=== PATIENT | female | born 1955 | race Caucasian/White ===

== ENCOUNTER 2016-10-21 13:18 | Inpatient (IN) | payer OTHER ==
[~2016-10-21] VITALS: Ht 165.1 cm; Wt 54.2 kg
[2016-11-11] MEDS ORDERED: FLUO1TAB3 PO (12:28)
[2016-11-11] MEDS ORDERED: ACYC800T PO (12:28)
[2016-11-11] MEDS ORDERED: ESTE1TAB4 PO (12:28)
[2016-11-11] MEDS ORDERED: MELO-1 PO (12:28)
[2016-11-11] MEDS ORDERED: GLUC1CAP14 PO (12:34)
[2016-11-11] MEDS ORDERED: NAPR500T PO (12:34)
[2016-11-11] MEDS ORDERED: CALC1TAB87 PO (12:34)
[2016-11-11] MEDS ORDERED: VITA10002 PO (12:34)
[2016-11-12] MEDS ORDERED: SODIUM CHLORID 0.9% 500 ML IV PRN (06:00)
[2016-11-12] MEDS ORDERED: VANCOMYCIN 1000 MG/NS 250 ML (for <70 kg) IV SCH ×2 (06:00)
[2016-11-12] MEDS ORDERED: LACTATED RINGER'S 1000 ML IV PRN (06:00)
[2016-11-12] MEDS ORDERED: CHLORHEXIDINE GLUCONATE 4% SOLN 120 ML BTL TOPICAL SCH (06:00)
[2016-11-12] MEDS ORDERED: ceFAZolin 2 GM PREMIX 50 ML IV SCH (06:00)
[2016-11-12] MEDS ORDERED: CHLORHEXIDINE GLUCONATE 2 % 1 PACK (2 CLOTHS) TOPICAL PRN (06:00)
[2016-11-12] MEDS ORDERED: INSULIN HUMAN REGULAR 1,000 UNITS/10 ML VIAL SQ PRN (06:00)
[2016-11-12] MEDS ORDERED: POVIDONE IODINE 5% (ANTISEPSIS KIT) 4 APPLICATIONS EACH NARE PRN (06:00)
[2016-11-12] MEDS ORDERED: METOPROLOL TARTRATE 25 MG TAB PO PRN (06:00)
[2016-11-12] MEDS ORDERED: GENTAMICIN SULFATE 80 MG/2 ML VIAL ONE ×2 (06:31→06:32)
[2016-11-12 06:40] VITALS: BP 134/79; PULSE 60; RESP 20; TEMP 98; O2SAT 99
[2016-11-12] MEDS ORDERED: fentaNYL CITRATE 250 MCG/5 ML AMP ONE (07:02)
[2016-11-12] MEDS ORDERED: MIDAZOLAM HCL 2 MG/2 ML VIAL ONE (07:02)
[2016-11-12] MEDS ORDERED: DEXAMETHASONE SOD PHOS 4 MG/ML VIAL ONE (07:03)
[2016-11-12] MEDS ORDERED: FAMOTIDINE 20 MG/2 ML VIAL ONE (07:03)
[2016-11-12] MEDS ORDERED: TRANEXAMIC ACID INJ 750 MG in SODIUM CHLORIDE 0.9% INJ 100 ML IV SCH (07:30)
[2016-11-12] MEDS ORDERED: EXPAREL PERI-ARTICULAR INJECTION (TOTAL VOL. 60 ML) P-ARTICULR SCH ×2 (07:30)
[2016-11-12] MEDS ORDERED: ACETAMINOPHEN 1000 MG/100 ML VIAL IV ONE (08:32)
[2016-11-12] MEDS ORDERED: XARE10TA PO (09:14)
[2016-11-12] MEDS ORDERED: HYDR-3366 PO (09:14)
[2016-11-12] MEDS ORDERED: WALKER/ADULT/FO1 MIS (09:14)
--- NOTE | 2016-11-12 09:15 | HHI.FF ---
Face to Face Verification Diagnosis: (1) S/P total hip arthroplasty Physical Therapy Gait training Hip: Total hip, Protocol: Right, Progress to weight bearing Right LE Weight Bearing: WB as tolerated Left LE Weight Bearing: WB as tolerated Nursing Dressing Changes: Daily dressing change, Coverderm/Primapore (begin adding xeroform POD 10) I have seen patient Marie Moe on 11/12/16. My clinical findings support the need for the requested home health care services because: Ltd mobility - disease progression I certify that my clinical findings support that this patient is homebound because: Post-op weakness Richard Mckenna November 12, 2016 09:15
[2016-11-12] MEDS ORDERED: NALOXONE HCL 0.4 MG/ML AMP IV PRN (09:30)
[2016-11-12] MEDS ORDERED: TRANEXAMIC ACID INJ 1,000 MG in SODIUM CHLORIDE 0.9% INJ 100 ML IV ONE (09:30)
[2016-11-12] MEDS ORDERED: MORPHINE SULFATE 4 MG/ML INJ IV PUSH PRN (09:30)
[2016-11-12] MEDS ORDERED: Post-op Orders (for Pharmacy) MISC XX ONE (09:30)
[2016-11-12] MEDS ORDERED: ONDANSETRON HCL 4 MG/2 ML VIAL IVP PRN (09:30)
[2016-11-12] MEDS ORDERED: SODIUM CHLORIDE 0.9% FLUSH 5 ML FLUSH IVF PRN (09:30)
--- NOTE | 2016-11-12 09:33 | PD.OP ---
cc: Evgeny Solorzano MD Operative Report Date of Surgery: November 12, 2016 Preoperative Diagnosis: Severe left hip osteoarthritis Postoperative Diagnosis: Procedure: Left total hip arthroplasty by anterior approach Anesthesia: Gen. Surgeon: Evgeny Solorzano [employer]argo Services Coordinator(s): MACO Quick PA-C The surgical procedure was assisted by my physician accounting administrative assistant. My P.A. presence was necessary throughout this case for the manipulation and positioning of the surgical extremity. My P.A. was assisting me throughout the duration of this procedure. The skill set of a physician accounting administrative assistant was medically necessary to complete this procedure. During the surgical case the quality control tech raw materials was working at the back table and the physician accounting administrative assistant was directly assisting me. Operation and Findings: PLAN OF ACTIVITY Weight bear as tolerated. DRAINS: 7-mm TIA drain. IMPLANTS USED DePuy Corail size [8] collared stem with a size [48] Laie Gription cup and a [+1.5] ceramic Biolox ceramic head. DETAILS OF PROCEDURE: This patient has a long history of hip pain. Patient was found to have severe osteoarthritis. The patient had radiographic evidence of joint space narrowing with dgmy-py-evkt arthritis and osteophytes around the acetabulum as well as the femoral head. There was also some cystic changes. The patient failed conservative treatment with pain medications, anti-inflammatories, physical therapy, assistive devices including a cane, as well as therapeutic injection of the hip. Patient's hip arthritis was limiting his ability to ambulate and perform activities of daily living. The patient wished to proceed with surgery and informed consent was obtained. Operative site was marked. I discussed both posterior approach and anterior approach with the patient and decision was made for anterior approach. Patient was brought to OR and placed on OR table. IV sedation and general anesthesia was administered by anesthesiologist. Patient positioned on a Tiffanie table and was given IV antibiotics. Time-out procedure was performed. The hip and thigh were prepped with alcohol followed by Hibiclens. The thigh was draped in the usual sterile fashion. Clean Air Suite was used for this procedure. The procedure began with a 5-inch incision over the anterolateral thigh. Subcutaneous tissue was dissected with Bovie. The fascia over the tensa fasciae latae was incised. Care was taken to avoid injury to the lateral femoral cutaneous nerve. The tensor muscle was retracted laterally. Sartorius was retracted medially. Retractors were now placed. The reflected head of the rectus is now elevated. A capsulotomy was performed over the anterior head capsule. Sutures were placed to help retract the capsule. At this point the femoral head and neck were identified. With soft tissue protected, oscillating saw was used to make a cut through the femoral neck, the femoral head was now removed. At this point attention was turned to preparation of the acetabulum. The labrum was excised. The acetabulum was sequentially reamed up to size [48]. A Laie cup was now placed. Fluoroscopy was used to aid in identification of appropriate version. Cup was fully impacted and found to have excellent fit. Hole eliminator was now placed. The liner was now impacted into the cup. At this point the hip was externally rotated. A hook was placed around the proximal femur. The capsule was released off the lateral and medial femur. The hip was now extended and adducted. Retractors were placed around the proximal femur to allow for exposure. A box osteotome was used to remove the lateral cortex of the femoral neck. A broach was used to help lateralize the prosthesis. Canal finder was used to create a path down the canal. Next, the canal was sequentially broached up to size [8]. This was found to be an excellent fit. Calcar planer was placed. A standard head was placed, and the hip was reduced. The hip was found to have excellent stability with good range of motion. The leg lengths were measured under fluoroscopy and found to be equal compared to preoperatively. Trial broach was removed. The Corail stem was opened. Stem was fully impacted into the proximal femur in appropriate version. The femoral head was placed. The hip was again reduced. Fluoroscopy confirmed excellent alignment of prosthesis. The wound was thoroughly irrigated and capsule was closed with #1 Vicryl. The fascia over the tensor fasciae muscle was closed with #1 Vicryl, subcutaneous tissue was closed with 3-0 Vicryl and the skin was closed with juan carlos and Dermabond skin closure. The capsule layers were injected with a mixture of saline and bupivicaine. Dressings were applied. The patient was transferred to Recovery Room in stable condition. Evgeny Solorzano MD November 12, 2016 09:33
[2016-11-12] MEDS ORDERED: DO NOT ADM ANY ANTICOAGULANT DRUGS PRN (09:46)
[2016-11-12] MEDS ORDERED: *morphine SULFATE 8 MG/ML PERIprocedure ONLY ONE (09:53)
[2016-11-12] MEDS ORDERED: *ONDANSETRON 4 MG VIAL PERIprocedural Use ONLY ONE (09:55)
[2016-11-12] MEDS: LACTATED RINGER'S 1000 ML INJ 1,000 ML IV SCH ×2 (10:00→20:48)
[2016-11-12] MEDS: KETOROLAC TROMETHAMINE 30 MG/ML (IVP) VIAL IV PUSH SCH ×2 (10:00→20:47)
--- NOTE | 2016-11-12 11:42 | RADRPT ---
EXAM DATE/TIME: 11/12/2016 10:47 [facility] COMPARISON: No previous studies available for comparison. INDICATIONS : Left total hip replacement. MEDICAL HISTORY : None. SURGICAL HISTORY : Hysterectomy. ENCOUNTER: Initial ACUITY: 1 day PAIN SCORE: 7/10 LOCATION: Left hip joint. FINDINGS: Postsurgical changes following left hip replacement are noted. Femoral and acetabular components are well seated in satisfactory aligned. Surgical drain is noted adjacent to prosthesis. Bony pelvis is intact. Advanced arthropathy is present of the right hip. CONCLUSION: Satisfactory postoperative appearance of left hip status post total hip replacement. Severe right hip arthropathy. Jaden Lo MD on November 12, 2016 at 11:38 Board Certified Radiologist. This report was verified electronically.
[2016-11-12] MEDS ORDERED: PROPOFOL 200 MG/20 ML AMP IV ONE (12:00)
[2016-11-12] MEDS: ceFAZolin 2 GM PREMIX 50 ML IV SCH ×3 (12:00→23:34)
[2016-11-12] MEDS ORDERED: ONDANSETRON HCL 4 MG/2 ML VIAL IV PUSH ONE (12:00)
[2016-11-12] MEDS ORDERED: ePHEDrine/NS 25 MG/5 ML SYR IV ONE (12:00)
[2016-11-12] MEDS ORDERED: LACTATED RINGER'S 1000 ML INJ 1,000 ML IV ONE (12:00)
[2016-11-12] MEDS ORDERED: NEOSTIGMINE 3 MG/3 ML SYR IV ONE (12:00)
[2016-11-12] MEDS: ACETAMINOPHEN/HYDROcodone 325 MG/10 MG TAB PO PRN ×2 (12:46→15:30)
[2016-11-12 13:30] VITALS: BP_SYST 121; BP_SYST 92; BP_DIAS 48; BP_DIAS 78; PULSE 64; PULSE 67; RESP 16; RESP 18; TEMP 97.1; TEMP 97.8; O2SAT 98
--- NOTE | 2016-11-12 13:58 | RADRPT ---
EXAM DATE/TIME: 11/12/2016 07:40 [facility] COMPARISON: No previous studies available for comparison. INDICATIONS : Left total hip replacement. MEDICAL HISTORY : None. SURGICAL HISTORY : None. ENCOUNTER: Initial ACUITY: 1 day PAIN SCORE: Non-responsive. LOCATION: Left hip. CONCLUSION: Fluoroscopic images left hip demonstrates left hip arthroplasty. Pop Harp MD on November 12, 2016 at 13:55 Board Certified Radiologist. This report was verified electronically.
[2016-11-12 16:00] VITALS: BP 98/68; PULSE 71; RESP 18; TEMP 96; O2SAT 95
[2016-11-12] MEDS: ACETAMINOPHEN/HYDROcodone 325 MG/7.5 MG TAB PO PRN ×2 (18:26→22:00)
[2016-11-12 19:00] VITALS: BP 108/68; PULSE 62; RESP 16; TEMP 98.2; O2SAT 92
[2016-11-12] MEDS: VANCOMYCIN INJ 1,000 MG in SODIUM CHLOR 0.9% 250 ML INJ 250 ML IV SCH (20:47)
[2016-11-12] MEDS: SODIUM CHLORIDE 0.9% FLUSH 5 ML FLUSH IVF SCH (20:47)
[2016-11-13] VITALS (7 sets, daily range): BP systolic 95–126; BP diastolic 64–77; PULSE 61–72; RESP 16–18; TEMP 95.9–97.8; O2SAT 93–99
[2016-11-13] MEDS: ACETAMINOPHEN/HYDROcodone 325 MG/7.5 MG TAB PO PRN ×4 (02:19→16:23)
[2016-11-13 06:21] LABS: HEMATOCRIT 33.5 % (35.0-46.0); REVIEW FLAG FINAL
--- NOTE | 2016-11-13 06:29 | PD.ORT.PN ---
Subjective Subjective Remarks Resting comfortably with no new complaints. States she did well with physical therapy yesterday. Objective Vitals Vital Signs Date Time Temp Pulse Resp B/P Pulse Ox O2 Delivery O2 Flow Rate FiO2 11/13/16 04:00 97.4 70 16 100/64 97 11/13/16 00:00 97.7 72 17 107/67 95 11/12/16 19:00 98.2 62 16 108/68 92 11/12/16 18:40 Room Air 11/12/16 16:00 96.0 71 18 98/68 95 11/12/16 13:30 97.1 64 18 121/78 98 11/12/16 11:30 63 14 115/74 94 Room Air 11/12/16 11:00 63 14 143/83 95 Room Air 11/12/16 11:00 22 11/12/16 10:45 80 23 153/79 100 Room Air 11/12/16 10:30 56 18 150/82 100 Nasal Cannula 3 11/12/16 10:15 62 18 145/88 100 Nasal Cannula 3 11/12/16 10:00 59 14 146/85 100 Nasal Cannula 3 11/12/16 09:48 98.0 73 15 145/82 99 Nasal Cannula 4 11/12/16 06:40 98.0 60 20 134/79 99 I/O 11/12/16 11/12/16 11/12/16 11/13/16 11/13/16 11/13/16 06:59 14:59 22:59 06:59 14:59 22:59 Intake Total 1640 ml 632 ml 868 ml Output Total 850 ml 800 ml 1795 ml Balance 790 ml -168 ml -927 ml Intake Oral 480 ml 240 ml IV Total 340 ml 152 ml 628 ml Other 1300 ml Output Urine Total 500 ml 700 ml 1715 ml Drainage Total 50 ml 100 ml 80 ml Estimated Blood Loss 300 ml # Bowel Movements 0 0 0 Result Diagram: 11/13/16 0519 Imaging Last 24 hours Impressions Hip and Pelvis X-Ray 11/12/1627 Signed Impressions: Service Date/Time: November 10:47 - CONCLUSION: Satisfactory postoperative appearance of left hip status post total hip replacement. Severe right hip arthropathy. Jaden Lo MD Objective Remarks Left lower extremity: Clean dry dressings intact. Drain removed this morning. Minimal swelling. No pain with knee or ankle range of motion. Distally intact sensation with good capillary refills. Strong dorsiflexion plantar flexion of foot. Leg lengths equal Assessment & Plan Assessment and Plan Left total hip arthroplasty anterior approach POD 1 Physical therapy weightbearing as tolerated twice a day Daily dressing changes: Dry dressings over incision and Xeroform over drain site Lovenox Incentive spirometry SHALA hose and sequential's We'll plan on discharge to home on Wednesday. Case management for home health care Follow-up with Dr. Solorzano or PA in 2 weeks Chris Lynn Jr. November 13, 2016 06:29
[2016-11-13] MEDS: ACYCLOVIR 800 MG TAB PO SCH (08:17)
[2016-11-13] MEDS: CYANOCOBALAMIN 1,000 MCG TAB PO SCH (08:17)
[2016-11-13] MEDS: FLUoxetine HCL 20 MG CAP PO SCH (08:18)
[2016-11-13] MEDS: CALCIUM/VITAMIN D 250 MG/125 U TAB PO SCH (08:18)
[2016-11-13] MEDS: VANCOMYCIN INJ 1,000 MG in SODIUM CHLOR 0.9% 250 ML INJ 250 ML IV SCH (08:18)
[2016-11-13] MEDS: SODIUM CHLORIDE 0.9% FLUSH 5 ML FLUSH IVF SCH ×2 (08:19→20:25)
[2016-11-13] MEDS: KETOROLAC TROMETHAMINE 30 MG/ML (IVP) VIAL IV PUSH SCH ×2 (08:29→20:25)
[2016-11-13] MEDS ORDERED: ESTERIFIED ESTROGENS PO SCH (09:00)
[2016-11-13] MEDS ORDERED: [UNRECOGNIZED DRUG - OTHER] PO SCH (09:00)
[2016-11-13] MEDS: ENOXAPARIN SODIUM 40 MG/0.4 ML SYRINGE SQ SCH (09:41)
[2016-11-13] MEDS: LACTATED RINGER'S 1000 ML INJ 1,000 ML IV SCH ×2 (10:27→20:31)
[2016-11-13] MEDS: DOCUSATE SODIUM 100 MG CAP PO SCH (20:25)
[2016-11-13] MEDS: ACETAMINOPHEN/HYDROcodone 325 MG/10 MG TAB PO PRN (22:02)
[2016-11-14] VITALS: BP 97/68; PULSE 64; RESP 16; TEMP 97.4; O2SAT 95
[2016-11-14] MEDS: ACETAMINOPHEN/HYDROcodone 325 MG/10 MG TAB PO PRN ×3 (01:41→11:50)
[2016-11-14 04:00] VITALS: BP 99/62; PULSE 61; RESP 20; TEMP 96.7; O2SAT 96
[2016-11-14 08:00] VITALS: BP 96/66; PULSE 80; RESP 16; TEMP 98.5; O2SAT 98
[2016-11-14] MEDS: SODIUM CHLORIDE 0.9% FLUSH 5 ML FLUSH IVF SCH (09:00)
[2016-11-14] MEDS: CYANOCOBALAMIN 1,000 MCG TAB PO SCH (09:33)
[2016-11-14] MEDS: ENOXAPARIN SODIUM 40 MG/0.4 ML SYRINGE SQ SCH (09:33)
[2016-11-14] MEDS: FLUoxetine HCL 20 MG CAP PO SCH (09:33)
[2016-11-14] MEDS: ACYCLOVIR 800 MG TAB PO SCH (09:34)
[2016-11-14] MEDS: DOCUSATE SODIUM 100 MG CAP PO SCH (09:34)
[2016-11-14] MEDS: CALCIUM/VITAMIN D 250 MG/125 U TAB PO SCH (09:34)
--- NOTE | 2016-11-14 09:59 | PD.ORT.PN ---
Subjective Post Op Day #: 2 Subjective Remarks Patient OOB in chair with minimal pain. Patient states she is ready for discharge home. Objective Vitals Vital Signs Date Time Temp Pulse Resp B/P Pulse Ox O2 Delivery O2 Flow Rate FiO2 11/14/16 08:00 98.5 80 16 96/66 98 11/14/16 04:00 96.7 61 20 99/62 96 11/14/16 00:00 97.4 64 16 97/68 95 11/13/16 21:13 21 11/13/16 20:00 97.3 70 18 95/65 97 11/13/16 16:00 95.9 61 18 124/72 98 11/13/16 12:00 96.6 66 18 126/75 93 I/O 11/13/16 11/13/16 11/13/16 11/14/16 11/14/16 11/14/16 07:00 15:00 23:00 07:00 15:00 23:00 Intake Total 868 ml 980 ml 780 ml 480 ml Output Total 1795 ml Balance -927 ml 980 ml 780 ml 480 ml Intake Oral 240 ml 980 ml 780 ml 480 ml IV Total 628 ml Output Urine Total 1715 ml Drainage Total 80 ml # Voids 5 3 1 # Bowel Movements 0 0 0 0 Result Diagram: 11/13/16 0519 Imaging Last 24 hours Impressions Hip and Pelvis X-Ray 11/12/16926 Signed Impressions: Service Date/Time: November 10:47 - CONCLUSION: Satisfactory postoperative appearance of left hip status post total hip replacement. Severe right hip arthropathy. Jaden Lo MD Procedures Left [facility] Objective Remarks Left lower extremity: Clean dry dressings intact. Minimal swelling. No pain with knee or ankle range of motion. Distally intact sensation with good capillary refills. Strong dorsiflexion plantar flexion of foot. Leg lengths equal Assessment & Plan Ortho Post Op Day #: 2 Problem List: Assessment and Plan POD #2: Left total hip arthroplasty anterior approach Physical therapy weightbearing as tolerated twice a day Daily dressing changes: Dry dressings over incision and Xeroform over drain site Lovenox Incentive spirometry SHALA hose and sequential's Cleared for discharge home with home heCase management for home health care Follow-up with Dr. Solorzano or PA in 2 weeks Dale Carson November 14, 2016 09:59
[2016-12-04] MEDS ORDERED: GLUC500T4 PO (06:13)
[2016-12-04] MEDS ORDERED: NAPR500T PO (06:13)
[2016-12-04] MEDS ORDERED: BACT800T5 PO (08:48)
[2016-12-04] MEDS ORDERED: NORC5TAB PO (08:48)
[2016-12-04] MEDS ORDERED: DOXY1CAP91 PO (08:48)
== END 2016-11-14 12:19 | disposition home health service (06) | DRG 470 ==
LOC: HSDI 11-12 05:28 → N06A 11-12 12:04
PROVIDERS: ADMIT Orthopaedic Surgery Orthopaedic Trauma; ATTEND Orthopaedic Surgery Orthopaedic Trauma
PROC: 0SRB04A Replacement of Left Hip Joint with Ceramic on Polyethylene Synthetic Substitute, Uncemented, Open Approach (ICD-10-PCS; principal; 2016-11-12 07:07)
DX: M16.12 Unilateral primary osteoarthritis, left hip (principal); F32.9 Major depressive disorder, single episode, unspecified
CPT/HCPCS: 73501; 73502; 76000; 85014; 85018; 86850; 86900; 86901; C1776; C9290; J0131; J0690; J1100; J1580; J1650; J1885; J2250; J2270; J2405; J2710; J3010; J3370; J7050; J7120

== ENCOUNTER → 2016-12-04 | Day surgery (SDC) | payer OTHER ==
[~2016-12-04] VITALS: Ht 165.1 cm; Wt 50.3 kg
[~2016-12-04] MED LIST: *morphine SULFATE 8 MG/ML PERIprocedure ONLY ONE; ACETAMINOPHEN 1000 MG/100 ML VIAL IV ONE; ACETAMINOPHEN/HYDROcodone 325 MG/5 MG TAB PO PRN; ACYC800T PO; BACT800T5 PO; CALC1TAB87 PO; CHLORHEXIDINE GLUCONATE 2 % 1 PACK (2 CLOTHS) TOPICAL PRN; CHLORHEXIDINE GLUCONATE 4% SOLN 120 ML BTL TOPICAL SCH; DEXAMETHASONE SOD PHOS 4 MG/ML VIAL ONE; DO NOT ADM ANY ANTICOAGULANT DRUGS PRN; DOXY1CAP91 PO; ESTE1TAB4 PO; FAMOTIDINE 20 MG/2 ML VIAL ONE; FLUO1TAB3 PO; GENTAMICIN SULFATE 80 MG/2 ML VIAL ONE; GLUC1CAP14 PO; GLUC500T4 PO; HYDR-3366 PO; INSULIN HUMAN REGULAR 1,000 UNITS/10 ML VIAL SQ PRN; LACTATED RINGER'S 1000 ML IV PRN; METOPROLOL TARTRATE 25 MG TAB PO PRN; MIDAZOLAM HCL 2 MG/2 ML VIAL ONE; MORPHINE SULFATE 4 MG/ML INJ IV PUSH PRN; NAPR500T PO; NORC5TAB PO; ONDANSETRON HCL 4 MG/2 ML VIAL IV PRN; ONDANSETRON HCL 4 MG/2 ML VIAL IV PUSH ONE; POVIDONE IODINE 5% (ANTISEPSIS KIT) 4 APPLICATIONS EACH NARE PRN; PROPOFOL 200 MG/20 ML AMP IV ONE; SODIUM CHLOR 0.9% 250 ML INJ 250 ML ONE; SODIUM CHLORID 0.9% 500 ML IV PRN; SODIUM CHLORIDE 0.9% FLUSH 10 ML FLUSH IV FLUSH PRN; SODIUM CHLORIDE 0.9% FLUSH 10 ML FLUSH IV FLUSH SCH; VANCOMYCIN HCL 1000 MG VIAL ONE; VITA10002 PO; WALKER/ADULT/FO1 MIS; XARE10TA PO; ceFAZolin INJ 1,000 MG VIAL ONE; ePHEDrine/NS 25 MG/5 ML SYR IV ONE
[2016-12-04 06:14] VITALS: BP 115/78; PULSE 69; RESP 16; TEMP 97.9; O2SAT 98
--- NOTE | 2016-12-04 08:51 | PD.OP ---
cc: Evgeny Solorzano MD Operative Report Date of Surgery: Dec 04, 2016 Preoperative Diagnosis: left hip superficial wound infection Postoperative Diagnosis: Procedure: I&D left hip wound Anesthesia: Gen. Surgeon: Evgeny Solorzano Automotive Repair Technician(s): MACO Quick PA-C Operation and Findings: Marie was seen and evaluated in clinic yesterday. She was noted to have some drainage and redness around the superior border of her left hip incision. Informed consent was obtained and operative site was marked. She was brought to operating room. She was given IV sedation and general anesthesia. Timeout procedure was performed. Left hip and thigh were prepped with alcohol followed by Hibiclens and draped usual sterile fashion. Antibiotics were held until cultures were obtained. Procedure began with a 1 inch incision through the previous scar. There was a small amount of purulent drainage present along the incision. Curettes were used to debride the wound. Cultures were obtained from subcutaneous tissue. There was no significant fluid collection or abscess visualized. There was a Vicryl suture in the center of the wound. There is likely a small suture abscess around the suture. The suture was removed. The fascia appeared to be completely intact. There is no tunneling of the wound. After thorough debridement of the subcutaneous tissue the wound was thoroughly irrigated with sterile saline. Wound was very clean this time. Subcutaneous tissues reapproximated with 3-0 PDS and skin was loosely reapproximated with 3-0 nylon. Sterile dressings were applied. Patient was transferred to recovery room in stable condition. Evgeny Solorzano MD Dec 04, 2016 08:51
[2016-12-04 10:50] VITALS: BP 114/72; PULSE 79; RESP 18; TEMP 98.7; O2SAT 96
--- NOTE | 2016-12-04 12:08 | EKG ---
Date Performed: 12/04/2016 Time Performed: 06:45:45 PTAGE: 61 years EKG: Sinus rhythm SEPTAL MYOCARDIAL INFARCTION , PROBABLY OLD ABNORMAL ECG NO PREVIOUS TRACING DOCTOR: Moreno Schroeder Interpretating Date/Time 12/04/2016 12:07:42
== END | disposition home or self-care (01) ==
LOC: HSDC 05:29
PROVIDERS: ATTEND Orthopaedic Surgery Orthopaedic Trauma
DX: T81.4XXA Infection following a procedure, initial encounter (principal); Z96.642 Presence of left artificial hip joint; Y83.8 Other surgical procedures as the cause of abnormal reaction of the patient, or of later complication, without mention of misadventure at the time of the procedure
CPT/HCPCS: 10180; 86403; 87015; 87070; 87102; 87116; 87176; 87186; 87205; 87206; 93005; J0131; J0690; J1100; J1580; J2250; J2270; J2405; J3010; J3370; J7050; J7120

== ENCOUNTER → 2017-03-19 | Outpatient (CLI) | payer OTHER ==
[~2017-03-19] MED LIST changes: -*morphine SULFATE 8 MG/ML PERIprocedure ONLY ONE; -ACETAMINOPHEN 1000 MG/100 ML VIAL IV ONE; -ACETAMINOPHEN/HYDROcodone 325 MG/5 MG TAB PO PRN; -CHLORHEXIDINE GLUCONATE 2 % 1 PACK (2 CLOTHS) TOPICAL PRN; -CHLORHEXIDINE GLUCONATE 4% SOLN 120 ML BTL TOPICAL SCH; -DEXAMETHASONE SOD PHOS 4 MG/ML VIAL ONE; -DO NOT ADM ANY ANTICOAGULANT DRUGS PRN; -FAMOTIDINE 20 MG/2 ML VIAL ONE; -GENTAMICIN SULFATE 80 MG/2 ML VIAL ONE; -GLUC1CAP14 PO; +HYDR-3583 PO; -INSULIN HUMAN REGULAR 1,000 UNITS/10 ML VIAL SQ PRN; -LACTATED RINGER'S 1000 ML IV PRN; -METOPROLOL TARTRATE 25 MG TAB PO PRN; -MIDAZOLAM HCL 2 MG/2 ML VIAL ONE; -MORPHINE SULFATE 4 MG/ML INJ IV PUSH PRN; -ONDANSETRON HCL 4 MG/2 ML VIAL IV PRN; -ONDANSETRON HCL 4 MG/2 ML VIAL IV PUSH ONE; -POVIDONE IODINE 5% (ANTISEPSIS KIT) 4 APPLICATIONS EACH NARE PRN; -PROPOFOL 200 MG/20 ML AMP IV ONE; -SODIUM CHLOR 0.9% 250 ML INJ 250 ML ONE; -SODIUM CHLORID 0.9% 500 ML IV PRN; -SODIUM CHLORIDE 0.9% FLUSH 10 ML FLUSH IV FLUSH PRN; -SODIUM CHLORIDE 0.9% FLUSH 10 ML FLUSH IV FLUSH SCH; -VANCOMYCIN HCL 1000 MG VIAL ONE; -ceFAZolin INJ 1,000 MG VIAL ONE; -ePHEDrine/NS 25 MG/5 ML SYR IV ONE
== END ==
LOC: CPRE 10:13
PROVIDERS: ATTEND Orthopaedic Surgery Orthopaedic Trauma
DX: M79.609 Pain in unspecified limb (principal)

== ENCOUNTER 2017-03-23 05:06 | Inpatient (IN) | payer OTHER ==
[~2017-03-23] VITALS: Ht 165.1 cm; Wt 55.7 kg
[~2017-03-23 05:06] MED LIST changes: -BACT800T5 PO; -DOXY1CAP91 PO; -GLUC500T4 PO; -HYDR-3366 PO; -HYDR-3583 PO; -NORC5TAB PO; -WALKER/ADULT/FO1 MIS; -XARE10TA PO
[2017-03-23] MEDS ORDERED: LACTATED RINGER'S 1000 ML IV PRN (05:30)
[2017-03-23] MEDS ORDERED: ceFAZolin 2 GM PREMIX 50 ML IV SCH (05:30)
[2017-03-23] MEDS ORDERED: SODIUM CHLORID 0.9% 500 ML IV PRN (05:30)
[2017-03-23] MEDS ORDERED: POVIDONE IODINE 5% (ANTISEPSIS KIT) 4 APPLICATIONS EACH NARE PRN (05:30)
[2017-03-23] MEDS ORDERED: CHLORHEXIDINE GLUCONATE 2 % 1 PACK (2 CLOTHS) TOPICAL PRN (05:30)
[2017-03-23] MEDS ORDERED: INSULIN HUMAN REGULAR 1,000 UNITS/10 ML VIAL SQ PRN (05:30)
[2017-03-23] MEDS ORDERED: CHLORHEXIDINE GLUCONATE 4% SOLN 120 ML BTL TOPICAL SCH (05:30)
[2017-03-23] MEDS ORDERED: METOPROLOL TARTRATE 25 MG TAB PO PRN (05:30)
[2017-03-23] MEDS ORDERED: VANCOMYCIN 1000 MG/NS 250 ML (for <70 kg) IV SCH ×2 (05:30)
[2017-03-23] MEDS ORDERED: ACETAMINOPHEN 1000 MG/100 ML 100 ML IV ONE (06:33)
[2017-03-23] MEDS ORDERED: EXPAREL PERI-ARTICULAR INJECTION (TOTAL VOL. 60 ML) P-ARTICULR SCH ×2 (07:00)
[2017-03-23] MEDS ORDERED: TRANEXAMIC ACID IV SCH (07:00)
[2017-03-23] MEDS ORDERED: SODIUM CHLORIDE 0.9% IV SCH (07:00)
[2017-03-23] MEDS ORDERED: GENTAMICIN SULFATE 80 MG/2 ML VIAL ONE (07:28)
[2017-03-23] MEDS ORDERED: ceFAZolin INJ 1,000 MG VIAL ONE (07:28)
[2017-03-23] MEDS ORDERED: XARE10TA PO (08:27)
[2017-03-23] MEDS ORDERED: HYDR-3583 PO (08:27)
--- NOTE | 2017-03-23 08:28 | HHI.FF ---
Face to Face Verification Diagnosis: (1) S/P total hip arthroplasty Physical Therapy Gait training Hip: Total hip, Protocol: Right Right LE Weight Bearing: WB as tolerated Nursing Dressing Changes: Daily dressing change, Coverderm/Primapore (begin adding xeroform POD 10) I have seen patient Marie Moe on 03/23/17. My clinical findings support the need for the requested home health care services because: Ltd mobility - disease progression I certify that my clinical findings support that this patient is homebound because: Post-op weakness Richard Mckenan Mar 23, 2017 08:28
[2017-03-23] MEDS ORDERED: SODIUM CHLORIDE 0.9% FLUSH 5 ML FLUSH IVF PRN (08:45)
[2017-03-23] MEDS ORDERED: NALOXONE HCL 0.4 MG/ML AMP IV PRN (08:45)
[2017-03-23] MEDS ORDERED: MORPHINE SULFATE 4 MG/ML INJ IV PUSH PRN (08:45)
[2017-03-23] MEDS ORDERED: ACETAMINOPHEN/HYDROcodone 325 MG/7.5 MG TAB PO PRN (08:45)
--- NOTE | 2017-03-23 08:46 | PD.OP ---
cc: Evgeny Solorzano MD Operative Report Date of Surgery: Mar 23, 2017 Preoperative Diagnosis: Severe right hip osteoarthritis Postoperative Diagnosis: Procedure: Right total hip arthroplasty via anterior approach Anesthesia: Gen. Surgeon: Evgeny Solorzano Music Intern(s): MACO Quick PA-C The surgical procedure was assisted by my physician internal medicine physician assistant. My P.A. presence was necessary throughout this case for the manipulation and positioning of the surgical extremity. My P.A. was assisting me throughout the duration of this procedure. The skill set of a physician internal medicine physician assistant was medically necessary to complete this procedure. During the surgical case the surgical processor was working at the back table and the physician internal medicine physician assistant was directly assisting me. Operation and Findings: PLAN OF ACTIVITY Weight bear as tolerated. DRAINS: 7-mm TIA drain. IMPLANTS USED DePuy Corail size 8 collared stem with a size [48] [place] Gription cup, [48/32 ] Altrx poly liner, and a [32+1.5] ceramic Biolox ceramic head. DETAILS OF PROCEDURE: This patient has a long history of hip pain. Patient was found to have severe osteoarthritis. The patient had radiographic evidence of joint space narrowing with wzwd-ex-rubh arthritis and osteophytes around the acetabulum as well as the femoral head. There was also some cystic changes. The patient failed conservative treatment with pain medications, anti-inflammatories, physical therapy, assistive devices including a cane, as well as therapeutic injection of the hip. Patient's hip arthritis was limiting his ability to ambulate and perform activities of daily living. The patient wished to proceed with surgery and informed consent was obtained. Operative site was marked. I discussed both posterior approach and anterior approach with the patient and decision was made for anterior approach. Patient was brought to OR and placed on OR table. IV sedation and general anesthesia was administered by anesthesiologist. Patient positioned on a Tiffanie table and was given IV antibiotics. Time-out procedure was performed. The hip and thigh were prepped with alcohol followed by Hibiclens. The thigh was draped in the usual sterile fashion. Clean Air Suite was used for this procedure. The procedure began with a 5-inch incision over the anterolateral thigh. Subcutaneous tissue was dissected with Bovie. The fascia over the tensa fasciae latae was incised. Care was taken to avoid injury to the lateral femoral cutaneous nerve. The tensor muscle was retracted laterally. Sartorius was retracted medially. Retractors were now placed. The reflected head of the rectus is now elevated. A capsulotomy was performed over the anterior head capsule. Sutures were placed to help retract the capsule. At this point the femoral head and neck were identified. With soft tissue protected, oscillating saw was used to make a cut through the femoral neck, the femoral head was now removed. At this point attention was turned to preparation of the acetabulum. The labrum was excised. The acetabulum was sequentially reamed up to size [48]. A Glenwood cup was now placed. Fluoroscopy was used to aid in identification of appropriate version. Cup was fully impacted and found to have excellent fit. Hole eliminator was now placed. The liner was now impacted into the cup. At this point the hip was externally rotated. A hook was placed around the proximal femur. The capsule was released off the lateral and medial femur. The hip was now extended and adducted. Retractors were placed around the proximal femur to allow for exposure. A box osteotome was used to remove the lateral cortex of the femoral neck. A broach was used to help lateralize the prosthesis. Canal finder was used to create a path down the canal. Next, the canal was sequentially broached up to size [8]. This was found to be an excellent fit. Calcar planer was placed. A standard head was placed, and the hip was reduced. The hip was found to have excellent stability with good range of motion. The leg lengths were measured under fluoroscopy and found to be equal compared to preoperatively. Trial broach was removed. The Corail stem was opened. Stem was fully impacted into the proximal femur in appropriate version. The femoral head was placed. The hip was again reduced. Fluoroscopy confirmed excellent alignment of prosthesis. The wound was thoroughly irrigated and capsule was closed with #1 Vicryl. The fascia over the tensor fasciae muscle was closed with #1 Vicryl, subcutaneous tissue was closed with 3-0 Vicryl and the skin was closed with juan carlos and Dermabond skin closure. The capsule layers, muscle, and subcutaneous tissue were injected with a mixture of saline and bupivicaine. Dressings were applied. The patient was transferred to Recovery Room in stable condition. Evgeny Solorzano MD Mar 23, 2017 08:45
[2017-03-23] MEDS: ESTROGEN ESTERIF/ME TESTOST 0.625 MG/1.25 MG TAB PO SCH (09:00)
[2017-03-23] MEDS: CALCIUM/VITAMIN D 250 MG/125 U TAB PO SCH (09:00)
[2017-03-23] MEDS: CYANOCOBALAMIN 1,000 MCG TAB PO SCH (09:00)
[2017-03-23] MEDS: FLUoxetine HCL 20 MG CAP PO SCH (09:00)
[2017-03-23] MEDS ORDERED: Post-op Orders (for Pharmacy) MISC XX ONE (09:00)
[2017-03-23] MEDS: ACYCLOVIR 800 MG TAB PO SCH (09:00)
[2017-03-23] MEDS ORDERED: *MEPERIDINE 25 MG INJ VIAL PERIprocedural Use ONLY ONE (09:06)
[2017-03-23] MEDS ORDERED: *morphine SULFATE 8 MG/ML PERIprocedure ONLY ONE ×2 (09:14→09:29)
[2017-03-23] MEDS ORDERED: DO NOT ADM ANY ANTICOAGULANT DRUGS PRN (09:30)
[2017-03-23] MEDS: LACTATED RINGER'S 1000 ML INJ 1,000 ML IV SCH ×2 (09:36→21:11)
[2017-03-23] MEDS: KETOROLAC TROMETHAMINE 30 MG/ML (IVP) VIAL IV PUSH SCH ×2 (09:41→21:06)
--- NOTE | 2017-03-23 09:57 | RADRPT ---
EXAM DATE/TIME: 03/23/2017 08:18 [facility] COMPARISON: FLUOROSCOPY PORTABLE UP TO 1HR, March 23, 2017, 0:00. INDICATIONS : Right total hip arthroplasty. MEDICAL HISTORY : None. SURGICAL HISTORY : None. ENCOUNTER: Initial ACUITY: 1 day PAIN SCORE: Non-responsive. LOCATION: Right hip FINDINGS: The patient is post right hip arthroplasty. Orthopedic hardware is in excellent position. Alignment i s good. There is no evidence of complication. CONCLUSION: 1. Orthopedic hardware in excellent position. Dale Uriarte MD on March 23, 2017 at 9:56 Board Certified Radiologist. This report was verified electronically.
[2017-03-23] MEDS: SODIUM CHLORIDE 0.9% FLUSH 5 ML FLUSH IVF SCH ×2 (10:15→21:07)
[2017-03-23] MEDS ORDERED: TRANEXAMIC ACID INJ 1,000 MG in SODIUM CHLORIDE 0.9% INJ 100 ML IV ONE (11:15)
--- NOTE | 2017-03-23 11:23 | RADRPT ---
EXAM DATE/TIME: 03/23/2017 09:40 [facility] COMPARISON: No previous studies available for comparison. INDICATIONS : Post op right hip surgery. MEDICAL HISTORY : None. SURGICAL HISTORY : Total left hip. ENCOUNTER: Initial ACUITY: 1 day PAIN SCORE: 8/10 LOCATION: Right Hip. FINDINGS: Postoperative bilateral total hip replacement with drain present in soft tissues on the right. Skin s taples on the right. No complications identified. CONCLUSION: 1. Postoperative recent right total hip replacement. No complications identified. Remote left hip rep lacement. Roger Ball MD on March 23, 2017 at 11:20 Board Certified Radiologist. This report was verified electronically.
[2017-03-23] MEDS: ACETAMINOPHEN/HYDROcodone 325 MG/10 MG TAB PO PRN ×2 (12:15→16:02)
[2017-03-23] MEDS: ceFAZolin 2 GM PREMIX 50 ML IV SCH ×2 (12:40→18:28)
[2017-03-23] MEDS ORDERED: DIMETHICONE/OXYBENZONE/PADMIATE LIP BALM 4.25 GM TOPICAL ONE (13:22)
[2017-03-23 14:00] VITALS: BP 120/80; PULSE 63; RESP 16; TEMP 97.1; O2SAT 98
[2017-03-23] MEDS ORDERED: ROCURONIUM INJ 50 MG/5 ML SYRINGE IV PUSH ONE (15:53)
[2017-03-23] MEDS ORDERED: NEOSTIGMINE 3 MG/3 ML SYR IV ONE (15:53)
[2017-03-23] MEDS ORDERED: GLYCOPYRROLATE 0.2 MG/ML VIAL IV ONE (15:53)
[2017-03-23] MEDS ORDERED: PHENYLEPH/NS 1000 MCG/10 ML SYR IV ONE (15:53)
[2017-03-23] MEDS ORDERED: PROPOFOL 200 MG/20 ML AMP IV ONE (15:53)
[2017-03-23] MEDS ORDERED: ONDANSETRON HCL 4 MG/2 ML VIAL IV PUSH ONE (15:53)
[2017-03-23] MEDS ORDERED: LIDOCAINE HCL 1% PF 5 ML AMPULE OTHER ONE (15:53)
[2017-03-23] MEDS ORDERED: MIDAZOLAM HCL 2 MG/2 ML VIAL IV ONE (15:53)
[2017-03-23 16:00] VITALS: BP 102/71; PULSE 72; RESP 16; TEMP 96; O2SAT 94
[2017-03-23] MEDS: VANCOMYCIN INJ 1,000 MG in SODIUM CHLOR 0.9% 250 ML INJ 250 ML IV SCH (18:29)
[2017-03-23 19:45] VITALS: BP 98/60; PULSE 63; RESP 18; TEMP 96.2; O2SAT 97
[2017-03-23 20:37] VITALS: BP 107/79
[2017-03-23 23:17] VITALS: BP 97/56; PULSE 68; RESP 17; TEMP 97.9; O2SAT 98
[2017-03-24] MEDS: ceFAZolin 2 GM PREMIX 50 ML IV SCH (01:40)
[2017-03-24] MEDS: ACETAMINOPHEN/HYDROcodone 325 MG/10 MG TAB PO PRN ×4 (01:45→12:30)
[2017-03-24 04:18] VITALS: BP 99/63; PULSE 73; RESP 18; TEMP 98.4; O2SAT 96
[2017-03-24] MEDS: VANCOMYCIN INJ 1,000 MG in SODIUM CHLOR 0.9% 250 ML INJ 250 ML IV SCH (05:33)
--- NOTE | 2017-03-24 06:36 | PD.ORT.PN ---
Subjective Subjective Remarks Doing well status post hip replacement. States that she does have slightly more pain than the previous hip. She was able to get up and ambulate some yesterday after surgery Objective Vitals Vital Signs Date Time Temp Pulse Resp B/P (MAP) Pulse Ox O2 Delivery O2 Flow Rate FiO2 03/24/17 04:18 98.4 73 18 99/63 (75) 96 03/23/17 23:17 97.9 68 17 97/56 (70) 98 03/23/17 22:06 18 03/23/17 20:37 107/79 (88) 03/23/17 19:45 96.2 63 18 98/60 (73) 97 03/23/17 16:00 96.0 72 16 102/71 (81) 94 03/23/17 14:00 97.1 63 16 120/80 (93) 98 03/23/17 13:00 97.6 65 15 120/71 (87) 98 Nasal Cannula 2 03/23/17 12:00 66 17 120/70 (87) 97 Nasal Cannula 2 03/23/17 11:38 70 14 116/75 (89) 94 Room Air 03/23/17 11:00 64 15 123/73 (90) 99 Nasal Cannula 2 03/23/17 10:30 69 13 125/75 (92) 100 Nasal Cannula 2 03/23/17 10:00 65 15 135/79 (97) 99 Nasal Cannula 2 03/23/17 09:45 67 15 151/79 (103) 100 Nasal Cannula 2 03/23/17 09:30 60 15 149/76 (100) 100 Nasal Cannula 2 03/23/17 09:15 71 18 141/89 (106) 100 Nasal Cannula 2 03/23/17 09:09 98.3 81 18 136/81 (99) 96 Nasal Cannula 2 I/O 03/23/17 03/23/17 03/23/17 03/24/17 03/24/17 03/24/17 07:00 15:00 23:00 07:00 15:00 23:00 Intake Total 1560 ml 480 ml 480 ml Output Total 380 ml 140 ml Balance 1180 ml 340 ml 480 ml Intake Oral 60 ml 480 ml 480 ml IV Total 400 ml Other 1100 ml Output Drainage Total 80 ml 140 ml Estimated Blood Loss 300 ml # Voids 2 2 # Bowel Movements 0 0 Imaging Last 24 hours Impressions Hip and Pelvis X-Ray 03/23/17 0841 Signed Impressions: Service Date/Time: Thursday, March 23, 2017 09:40 - CONCLUSION: 1. Postoperative recent right total hip replacement. No complications identified. Remote left hip replacement. Roger Ball MD Objective Remarks Right lower extremity: Clean dry dressings intact with drain in place. Minimal swelling. Intact sensation distally with good capillary refills. She has strong dorsiflexion plantar flexion of foot. Mild tenderness with internal/external rotation of hip Assessment & Plan Assessment and Plan Right anterior total hip POD 1 PT twice a day weightbearing as tolerated Discontinue drain today after physical therapy and first dressing change: Primapore only over incision and Xeroform over drain site with no Steri-Strips Lovenox then convert to Xarelto after discharge Incentive spirometry Discharge to home today if doing well with physical therapy Case management with home health dressing changes with [facility] Follow-up appointment with Dr. Solorzano or PA in 2 weeks Chris Lynn Jr. Mar 24, 2017 06:36
[2017-03-24 06:56] LABS: HEMATOCRIT 32.3 % (35.0-46.0); REVIEW FLAG FINAL
[2017-03-24 08:00] VITALS: BP 105/60; PULSE 78; RESP 16; TEMP 99.2; O2SAT 94
[2017-03-24] MEDS ORDERED: ENOXAPARIN SODIUM 40 MG/0.4 ML SYRINGE SQ SCH (08:00)
[2017-03-24] MEDS: SODIUM CHLORIDE 0.9% FLUSH 5 ML FLUSH IVF SCH (09:00)
[2017-03-24] MEDS: ESTROGEN ESTERIF/ME TESTOST 0.625 MG/1.25 MG TAB PO SCH (09:00)
[2017-03-24 09:28] VITALS: O2SAT 98
[2017-03-24] MEDS: FLUoxetine HCL 20 MG CAP PO SCH (10:00)
[2017-03-24] MEDS: ACYCLOVIR 800 MG TAB PO SCH (10:00)
[2017-03-24] MEDS: CALCIUM/VITAMIN D 250 MG/125 U TAB PO SCH (10:01)
[2017-03-24] MEDS: KETOROLAC TROMETHAMINE 30 MG/ML (IVP) VIAL IV PUSH SCH (10:01)
[2017-03-24] MEDS: CYANOCOBALAMIN 1,000 MCG TAB PO SCH (10:01)
[2017-03-24] MEDS ORDERED: DOCUSATE SODIUM 100 MG CAP PO SCH (21:00)
== END 2017-03-24 12:47 | disposition home health service (06) | DRG 470 ==
LOC: HSDI 05:06 → N06A 13:35
PROVIDERS: ADMIT Orthopaedic Surgery Orthopaedic Trauma; ATTEND Orthopaedic Surgery Orthopaedic Trauma
PROC: 0SR904A Replacement of Right Hip Joint with Ceramic on Polyethylene Synthetic Substitute, Uncemented, Open Approach (ICD-10-PCS; principal; 2017-03-23 06:44)
DX: M16.11 Unilateral primary osteoarthritis, right hip (principal)
CPT/HCPCS: 73501; 73502; 76000; 85014; 85018; 86850; 86900; 86901; C1776; C9290; J0131; J0690; J1580; J1650; J1885; J2175; J2250; J2270; J2370; J2405; J2710; J3010; J3370; J7050; J7120